=== PATIENT | female | born 1980 | race Caucasian/White ===

== ENCOUNTER 2016-04-20 11:04 | Emergency (ER) | payer OTHER ==
--- NOTE | ~2016-04-20 | CR63 ---
[facility] A Service of [facility] & [facility] RADIOLOGY TEXT RESULTS PATIENT: DAKOTA HUNG LOCATION: SED : 81 UNIT #: [id number] AGE: [address]: Sonam Vo APRN SEX: F ORDER DR: [id number] [place] [id number] E MR#: [id number] Acc #: [id number] NAME: DAKOTA HUNG : 1980 SEX: F STUDY DATE/TIME: 04/20/2016 11:06 UNIT: SED ROOM: STUDY DESCRIPTION: CR Chest 2 View Attending Physician: Sonam Vo A.P.R.N. Ordering Physician: Sonam Vo A.P.R.N. Primary Care Physician: Leticia Figueroa A.P.R.N. MEDICAL IMAGING REPORT This report is preliminary unless electronic signature is present. EXAM Chest x-ray 04/20/2016. HISTORY 35-year-old female in the ED complaining of 2-day history of cough and sore throat. TECHNIQUE PA and lateral upright chest series. FINDINGS The heart size and pulmonary vascularity are normal. The lungs are expanded and clear. No visible pulmonary infiltrate or pleural effusion. No change since 07/20/2015. IMPRESSION Negative chest. No change since 07/20/2015. Dictated by... Cristóbal Corea M.D. THIS IS AN ELECTRONICALLY VERIFIED REPORT Cristóbal Corea M.D. at 04/20/2016 4:12 PM ONEL/liliana TD: 04/20/2016 14:00 JOB #: [id number] MEDICAL IMAGING REPORT
--- NOTE | ~2016-04-20 | CR151 ---
[facility] A Service of [facility] & [facility] RADIOLOGY TEXT RESULTS PATIENT: DAKOTA HUNG LOCATION: SED : 81 UNIT #: [id number] AGE: [address]: Sonam Vo APRN SEX: F ORDER DR: [id number] [place] [id number] E MR#: [id number] Acc #: [id number] NAME: DAKOTA HUNG : 1980 SEX: F STUDY DATE/TIME: 04/20/2016 11:06 UNIT: SED ROOM: STUDY DESCRIPTION: CR Hip Min 2 Views Rt Attending Physician: Sonam Vo A.P.R.N. Ordering Physician: Sonam Vo A.P.R.N. Primary Care Physician: Leticia Figueroa A.P.R.N. MEDICAL IMAGING REPORT This report is preliminary unless electronic signature is present. EXAM Pelvis and right hip, 3 total views, 04/20/2016, 11:06 a.m. HISTORY History sheet states right hip pain for 1 day. Right hip gave out and patient fell. FINDINGS There is no fracture, dislocation, or osseous lesion identified. Transitional lumbosacral segment on the left with a pseudojoint is likely incidental. No soft tissue abnormality. IMPRESSION No acute abnormalities. Dictated by... Mattie Su M.D. THIS IS AN ELECTRONICALLY VERIFIED REPORT Mattie Su M.D. at 04/21/2016 9:40 AM DOMINGO/jenise TD: 04/20/2016 13:59 JOB #: [id number] MEDICAL IMAGING REPORT
[~2016-04-20 11:04] MED LIST: ALBUTEROL17 GM INH; AMOXICILLIN PO; AMOXICILLIN500 M1 PO; ASCORBIC ACID500 M2 PO; BACTRIM DS TABL1 TA1 PO; BENADRYL25 M3; BENZONATATE PO; CELEXA20 MG; DAKIN'S MODIF1000 ML EXT; DESYREL50 MG; DICLOFENAC PO; E-MYCIN250 MG PO; FLONASE 0.05% N16 G1; HCTZ; IBUPROFEN; IBUPROFEN PO; IBUPROFEN800 MG PO; K-DUR20 ME1 PO; KEFLEX500 MG PO; LORTAB PO; NO MEDICATIONS; ONE DAILY1 TA3 PO; PHENERGAN VC W120 M1 PO; PREDNISONE10 MG PO; SANTYL15 G1 TP; SINGULAIR; TYLOX 5/500 CAP1 CAP PO; VICODIN 5/1 TAB 5/50 PO; VOLTAREN75 MG PO; ZINC SULFATE220 M1 PO; ZITHROMAX PO; ZITHROMAX1 G/PKT PO; ZYRTEC10 M1; ZYVOX600 MG PO
[2016-04-20 11:57] LABS: INFLUENZA A NEG (NEG); INFLUENZA B NEG (NEG)
[2016-04-30] MEDS ORDERED: HCTZ PO (22:23)
== END 2016-04-20 12:36 | disposition home or self-care (01) ==
LOC: SED 11:04
PROVIDERS: Nurse Practitioner
DX: J20.9 Acute bronchitis, unspecified (principal); M25.551 Pain in right hip; F41.9 Anxiety disorder, unspecified; F17.210 Nicotine dependence, cigarettes, uncomplicated
CPT/HCPCS: 71020; 73502; 87651; 87804; 96372; 99284; J1885

== ENCOUNTER 2016-04-30 23:17 | Emergency (ER) | payer OTHER ==
[~2016-04-30 23:17] MED LIST changes: +HCTZ PO
[2016-05-01] MEDS ORDERED: BACTRIM 400-801 TA1 PO (00:44)
[2016-05-01] MEDS ORDERED: KEFLEX500 M1 PO (00:45)
[2016-05-01] MEDS ORDERED: IBUPROFEN800 MG PO (00:45)
[2016-05-01] MEDS ORDERED: ZOFRAN ODT4 MG PO (00:45)
== END 2016-05-01 00:45 | disposition home or self-care (01) ==
LOC: SED 23:17
DX: L02.211 Cutaneous abscess of abdominal wall (principal); Z23 Encounter for immunization; F31.9 Bipolar disorder, unspecified; F41.9 Anxiety disorder, unspecified; R60.0 Localized edema; F17.210 Nicotine dependence, cigarettes, uncomplicated; F43.10 Post-traumatic stress disorder, unspecified; Z88.5 Allergy status to narcotic agent; Z88.8 Allergy status to other drugs, medicaments and biological substances
CPT/HCPCS: 10060; 90471; 90715; 99283

== ENCOUNTER → 2016-06-20 | Outpatient (CLI) | payer OTHER ==
[~2016-06-20] MED LIST changes: +BACTRIM 400-801 TA1 PO; +HYDROMORPH; +KEFLEX500 M1 PO; +NORCO 7.5-3251 EACH PO; +PHENERGAN25 M1 PO; +SINGULAIR PO; +ZOFRAN ODT4 MG PO
--- NOTE | ~2016-06-20 | US5 ---
[facility] A Service of [facility] RADIOLOGY TEXT RESULTS PATIENT: DAKOTA HUNG LOCATION: RUST : 81 UNIT #: [id number] AGE: [address]: Leticia Figueroa SEX: F ORDER DR: [id number] [address] [address] [id number] O MR#: [id number] Acc #: [id number] NAME: DAKOTA HUNG : 1980 SEX: F STUDY DATE/TIME: 06/20/2016 9:41 UNIT: RUST ROOM: STUDY DESCRIPTION: US Abdominal Complete Attending Physician: Leticia Figueroa A.P.R.N. Referring Physician: Leticia Figueroa A.P.R.N. Ordering Physician: Leticia Figueroa A.P.R.N. Primary Care Physician: Leticia Figueroa A.P.R.N. MEDICAL IMAGING REPORT This report is preliminary unless electronic signature is present. EXAM Abdominal ultrasound complete 06/20/2016 HISTORY Generalized abdominal pain and nausea for 1 week. Pain while eating for 1 month. FINDINGS The liver is homogeneous in echotexture and demonstrates no cystic or solid mass lesions. The intra- and extrahepatic bile ducts are not dilated. The gallbladder contains multiple shadowing gallstones but there is no evidence of gallbladder wall thickening or pericholecystic fluid. The common duct measures 2 mm. The pancreas and the spleen are normal. The spleen measures 10.3 cm in greatest diameter. The visualized portions of the abdominal aorta and inferior vena cava are within normal limits. The kidneys are normal bilaterally. IMPRESSION Cholelithiasis. Dictated by... Duncan Cole M.D. THIS IS AN ELECTRONICALLY VERIFIED REPORT Duncan Cole M.D. at 06/21/2016 9:02 AM PILO/geno TD: 06/20/2016 14:59 JOB #: [id number] MEDICAL IMAGING REPORT [facility] A Service of [facility] RADIOLOGY TEXT RESULTS PATIENT: DAKOTA HUNG LOCATION: RUST : 81 UNIT #: [id number] AGE: [address]: Leticia Figueroa SEX: F ORDER DR: Page 1 of 1
== END | disposition home or self-care (01) ==
LOC: SGUS 09:32
DX: R10.84 Generalized abdominal pain (principal); K80.20 Calculus of gallbladder without cholecystitis without obstruction
CPT/HCPCS: 76700

== ENCOUNTER 2016-07-03 22:58 | Emergency (ER) | payer OTHER ==
[~2016-07-03 22:58] MED LIST changes: -HYDROMORPH; -NORCO 7.5-3251 EACH PO; -PHENERGAN25 M1 PO; -SINGULAIR PO
[2016-07-03] MEDS ORDERED: SINGULAIR PO (23:07)
[2016-07-03 23:34] LABS: INFLUENZA A NEG (NEG); INFLUENZA B NEG (NEG)
== END 2016-07-04 00:26 | disposition home or self-care (01) ==
LOC: SED 22:58
PROVIDERS: Emergency Medicine
DX: J06.9 Acute upper respiratory infection, unspecified (principal); F17.200 Nicotine dependence, unspecified, uncomplicated; Z88.5 Allergy status to narcotic agent; Z79.899 Other long term (current) drug therapy
CPT/HCPCS: 87651; 87804; 99282

== ENCOUNTER 2016-07-12 10:36 | Inpatient (IN) | payer OTHER ==
--- NOTE | ~2016-07-12 | CT57 ---
[facility] A Service [facility] RADIOLOGY TEXT RESULTS PATIENT: DAKOTA HUNG LOCATION: [facility] 465-01 : [birth year] UNIT #: [id number] AGE: [address]: Daniele Stevens MD SEX: F ORDER DR: [id number] [facility] [address] [facility]. [place], [place] [address] [id number] I MR#: [id number] Acc #: [id number] NAME: DAKOTA HUNG. : 1980 SEX: F STUDY DATE/TIME: 07/16/2016 13:20 UNIT: [facility] ROOM: [facility] STUDY DESCRIPTION: CT Chest Wo Cont Attending Physician: Daniele Stevens Jr., M.D. Ordering Physician: Mino Macias M.D. Primary Care Physician: Leticia Figueroa A.P.R.N. MEDICAL IMAGING REPORT This report is preliminary unless electronic signature is present EXAM CT scan of the chest without contrast. INDICATIONS Left-sided chest pain. Cough for 2 days. Patient had a cholecystectomy on 07/12/16. Chest x-ray shows atelectasis or pneumonia. TECHNIQUE Axial 5 mm images were obtained through the chest without IV contrast. This CT exam was performed with one or more of the following radiation dose reduction techniques: automatic exposure control, adjustment of mA and/or kV according to patient size, and iterative reconstruction. FINDINGS The visualized portion of the upper abdomen shows recent post-cholecystectomy changes without evidence of complication. There is minimal atelectasis in the right lower lobe superior segment and mild right base atelectasis in the posterior medial segment. There is slightly larger area of atelectasis in the left lower lobe involving the posterior and lateral basilar segments. The thyroid gland is normal. IMPRESSION 1. Mild atelectasis, left base, with minimal atelectasis right base, in right lower lobe superior segment. 2. Postoperative changes of recent cholecystectomy. Dictated by... Caden Sauer M.D. [facility] A Service [facility] RADIOLOGY TEXT RESULTS PATIENT: DAKOTA HUNG LOCATION: [place] [address] : [birth year] UNIT #: [id number] AGE: [address]: Daniele Stevens MD SEX: F ORDER DR: THIS IS AN ELECTRONICALLY VERIFIED REPORT Caden Sauer M.D. at 07/17/2016 7:03 AM RADHA/andreia TD: 07/16/2016 22:12 JOB #: [id number] MEDICAL IMAGING REPORT Page 1 of 1 COPY
--- NOTE | ~2016-07-12 | OR ---
Unit #: [id number] #: [id number] Patient: DAKOTA HUNG [id number] [address] [place], [place] [address] [id number] I MR#: [id number] NAME: DAKOTA HUNG ROOM: [facility] Date of Procedure: 07/12/2016 Admission Date: 07/12/2016 Surgeon: Daniele Stevens Jr., M.D. : 1980 Attending Physician: Daniele Stevens Jr., M.D. Primary Care Physician: Leticia Figueroa A.P.R.N. OPERATIVE REPORT INDICATION FOR PROCEDURE The patient is a 36-year-old white female, who recently was referred to the office complaining of intermittent mid epigastric and right upper quadrant abdominal pain with gallstones that were found on workup. It was felt she needed laparoscopic cholecystectomy. She has had biliary colic and is brought in this time for this procedure. She understands the procedure including the risks, including that of common duct injury, biliary leak, and bleeding, and intra-abdominal organ injury, and consents. PREOPERATIVE DIAGNOSES Chronic cholecystitis and cholelithiasis. POSTOPERATIVE DIAGNOSIS Chronic cholecystitis and cholelithiasis noting several aberrant ducts around the gallbladder with a normal-appearing common duct on cholangiogram. ANESTHESIA General with endotracheal intubation. PROCEDURE PERFORMED Laparoscopic cholecystectomy then followed by exploratory laparotomy of the right upper quadrant with intraoperative cholangiograms and fluoroscopy. DESCRIPTION OF PROCEDURE The patient was positioned in supine position. After being anesthetized and intubated, she was prepped and draped in routine fashion for laparoscopic cholecystectomy. A small supraumbilical incision was made approximately 1 cm in length. This was carried down to the fascia. The fascia was lifted between 2 Jessica clamps and Veress needle introduced into the abdomen. The abdomen was then inflated with CO2 gas. A 5-mm port was introduced into the abdomen followed by the camera. There was no evidence of any injury related to introduction of the port or the Veress needle. Brief intra-abdominal exploration was carried out. The patient was noted to have some adhesions in the lower abdomen and a chronic inflamed appearing gallbladder. Two 5-mm ports were placed laterally and an 11-mm port just to the right of the upper midline. The gallbladder was lifted and dissection was carried out on the triangle of Calot. The cystic duct was very small, isolated, hemoclipped x4 at least 1 cm from its junction with the common duct or at least that is what it appeared to be and then divided. Cystic artery was divided and hemoclipped and was a Unit #: [id number] #: [id number] Patient: DAKOTA HUNG A branch right off the right hepatic. There were several small aberrant appearing ductal structures at the base of the gallbladder, which were also hemoclipped, but did not appear to be the common duct. The gallbladder was removed from its bed with the hook cautery using a current of 20 and after it was released, it was placed in EndoCatch bag and brought out through the larger port site. It was full of large stones. It was sent to pathology to make sure that there was no evidence of any common duct fragment into the cystic duct and this was felt to not be the case, but it was unsure. In view of this fact, I discussed this with her family member and felt she should have exploratory laparotomy of the right upper quadrant with cholangiograms and possible repair of the common duct if any injury found. A transverse incision was made extending towards the midline over to the anterior axillary line in the subcostal area 2 fingerbreadths below the costal area. This was carried down through subcutaneous tissue through the anterior rectus sheath with portion of the rectus sheath being divided and the posterior rectus sheath was then opened and divided in with Bovie cautery. Intra-abdominal exploration was carried out. Sponge that had been packed in was removed and sponge count was correct x3. The right upper quadrant was explored. There was evidence of a normal-appearing common duct just medial to the area of dissection with clips on the cystic duct with no leaks. There were also additional small ductal structures as noted above, which had hemoclips on them and did not appear to be any important ducts related to the common duct or the hepatic ducts. A 21-gauge scalp vein needle was placed in the common duct under fluoroscopy. The common duct was x-rayed with dye and appeared totally normal with no evidence of any stones, obstruction, or damage to the hepatic ducts or to the common duct. The scalp vein needle was then removed and the puncture hole was then closed with an interrupted 5-0 Prolene stitch. The right upper quadrant was copiously irrigated with saline solution. A 10 mm Rashi-Tavarez drain was placed in the subhepatic space sutured to the skin with 2-0 silk suture and the posterior rectus sheath and internal oblique muscle layer were closed with continuous #1 Vicryl sutures. Anterior rectus sheath and external oblique layers were closed with interrupted #1 Vicryl suture. Subcutaneous tissue was irrigated and after hemostasis achieved with Bovie cautery and sponge count was correct x3, the skin edges on all the wounds were approximated with stainless-steel skin clips and skin stapling device. Sterile dressings were applied externally. Estimated blood loss less than 150 mL. The patient received less than 3000 mL crystalloid solution during the procedure. Sponges and instruments counts were correct x3. No drains used. No complications. The patient was taken to the recovery room with stable vital signs in satisfactory condition. Dictated by... Daniele Stevens Jr., MLavelle STATON/kae TD: 07/13/2016 00:57 JOB #: [id number] Unit #: [id number] #: [id number] Patient: DAKOTA HUNG OPERATIVE REPORT Page 1 of 1 X Daniele Stevens MD X PROCEDURE OPERATIVE NOTE
--- NOTE | ~2016-07-12 | DS ---
Unit #: [id number] #: [id number] Patient: DAKOTA HUNG [id number] [address] [place], [place] [address] [id number] I MR#: [id number] NAME: DAKOTA HUNG. ROOM: 465 Age: 36 Sex: F Admission Date: 07/12/2016 : 1980 Discharge Date: 07/17/2016 Attending Physician: Daniele Stevens Jr., M.D. Primary Care Physician: Leticia Figueroa A.P.R.N. DISCHARGE SUMMARY ADMITTING DIAGNOSIS Chronic cholecystitis. DISCHARGE DIAGNOSIS Chronic cholecystitis. SECONDARY DIAGNOSES 1. Left lower lobe atelectasis/infiltrate. 2. History of tobacco abuse. CONSULTATIONS 1. Hospitalist. 2. Dr. Jax Root. PROCEDURE PERFORMED On 07/12/2016, she underwent attempted laparoscopic with conversion to open cholecystectomy due to some aberrant cystic duct anatomy. BRIEF HOSPITAL COURSE This is a 36-year-old lady who has a diagnosis of chronic cholecystitis with gallstones. She came in for laparoscopic cholecystectomy. However, at the time of surgery, she had what looked like some aberrant anatomy that required conversion to an open procedure for confirmation. She, postoperatively, had a bump in her liver function tests. However, follow up showed that they were declining with a normal bilirubin. Her alkaline phos. was still slightly elevated. She also had some shortness of air postoperatively so pulmonary was asked to see the patient and she also had hospitalist follow her for other medical problems. Prior to discharge, she was tolerating a regular diet. Her MT drain was discontinued. She was only on oral pain medication. DISPOSITION Discharge to home. She is to follow up with Dr. Stevens in the office on Monday to have her tracey removed. She was given a script for [place] and Phenergan and apparently pulmonary is going to place her on an antibiotic prior to discharge. Dictated by... Michael Reaves III, M.D. Unit #: [id number] #: [id number] Patient: DAKOTA HUNG LATRELL/eva TD: 07/19/2016 07:59 JOB #: [id number] DISCHARGE SUMMARY Page 1 of 1 X Michael Reaves III, MD X DISCHARGE SUMMARY
--- NOTE | ~2016-07-12 | CR63 ---
[facility] A Service of [facility] RADIOLOGY TEXT RESULTS PATIENT: ADKOTA HUNG LOCATION: [place] [address] : [birth year] UNIT #: [id number] AGE: [address]: Daniele Stevens MD SEX: F ORDER DR: [id number] [facility] [address] [facility]. [place], [place] [address] [id number] I MR#: [id number] Acc #: [id number] NAME: DAKOTA HUNG. : 1980 SEX: F STUDY DATE/TIME: 07/14/2016 12:41 UNIT: [facility] ROOM: 450 STUDY DESCRIPTION: CR Chest 2 View Attending Physician: Daniele Stevens Jr., M.D. Ordering Physician: Daniele Stevens Jr., M.D. Primary Care Physician: Leticia Figueroa A.P.R.N. MEDICAL IMAGING REPORT This report is preliminary unless electronic signature is present EXAM Two views chest, 07/14/16. HISTORY Complains of chest pain, left side chest pain, cough. Began yesterday. Smoker 25 years. REPORT AP radiograph of the chest is presented. COMPARISON 07/13/16, 2012 hours. FINDINGS Stable cardiomediastinal silhouette. The lung volumes remain low. Patchy and linear densities at the right lung base probably atelectatic in nature. Denser airspace disease at the left lung base probably represents combination of atelectasis and pneumonia. Follow up to complete radiographic resolution recommended. The upper lung zones are clear. There is no definite pleural effusion. No pneumothorax. There is evidence of prior cholecystectomy. Dictated by... Valentin Pack M.D. THIS IS AN ELECTRONICALLY VERIFIED REPORT Valentin Pack M.D. at 07/16/2016 10:28 PM CODEY/andreia TD: 07/14/2016 17:23 JOB #: [id number] [facility] A Service of [facility] RADIOLOGY TEXT RESULTS PATIENT: DAKOTA HUNG [id number] : [birth year] UNIT #: [id number] AGE: [address]: Daniele Stevens MD SEX: F ORDER DR: MEDICAL IMAGING REPORT Page 1 of 1 COPY
--- NOTE | ~2016-07-12 | EKG ---
PATIENT: DAKOTA HUNG UNIT #: [id number] Ventricular Rate: 57 BPM Atrial Rate: 57 BPM P-R Interval: 140 ms QRS Duration: 80 ms Q-T Interval: 452 ms QTC Calculation(Bezet): 439 ms P [place]: 36 degrees Calculated R [place]: 46 degrees Calculated T [place]: 30 degrees Diagnosis Line: Sinus bradycardia with Premature atrial complexes Diagnosis Line: Otherwise normal ECG Diagnosis Line: When compared with ECG of 12-JUL-2016 10:51, Diagnosis Line: Premature atrial complexes are now Present Diagnosis Line: QT has shortened Diagnosis Line: Confirmed by CLAUDIO DELGADO MD ([id number]) on Diagnosis Line: 07/14/2016 7:09:45 PM INTERPRETING MD: SANDY MCINTYRE
--- NOTE | ~2016-07-12 | CR73 ---
[facility] A Service of [facility] & [facility] RADIOLOGY TEXT RESULTS PATIENT: DAKOTA HUNG LOCATION: [facility] 450-01 : [birth year] UNIT #: [id number] AGE: [address]: Daniele Stevens MD SEX: F ORDER DR: [id number] [facility] [address] [facility]. [place], [place] [address] [id number] I MR#: [id number] Acc #: [id number] NAME: DAKOTA HUNG : 1980 SEX: F STUDY DATE/TIME: 07/12/2016 15:22 UNIT: [facility] ROOM: [facility] STUDY DESCRIPTION: CR Cholangiogram Operative Attending Physician: Daniele Stevens Jr., M.D. Ordering Physician: Daniele Stevens Jr., M.D. Primary Care Physician: Leticia Figueroa A.P.R.N. MEDICAL IMAGING REPORT This report is preliminary unless electronic signature is present EXAM Operative cholangiogram HISTORY Cholecystectomy. TECHNIQUE A single view was obtained over the right upper quadrant during injection of the cystic duct with contrast. There is filling of the common bile duct with spill into the duodenum noted. No filling defects are seen. Leakage of a small amount of contrast is seen at the injection. IMPRESSION Negative operative cholangiogram. One spot film was obtained. Total fluoroscopy time documented at 28 seconds. Dictated by... Willy Zelaya M.D. THIS IS AN ELECTRONICALLY VERIFIED REPORT Willy Zelaya M.D. at 07/14/2016 4:33 PM STEPHANIA/mathew TD: 07/12/2016 23:41 JOB #: [id number] MEDICAL IMAGING REPORT Page 1 of 1 COPY
--- NOTE | ~2016-07-12 | CO ---
Unit #: [id number] #: [id number] Patient: DAKOTA HUNG [id number] [address] [place], [place] [address] [id number] I MR#: [id number] NAME: DAKOTA HUNG. ROOM: 450 Age: 36 Sex: F Admission Date: 07/12/2016 : 1980 Attending Physician: Daniele Stevens Jr., M.D. Primary Care Physician: Leticia Figueroa A.P.R.N. CONSULTATION REPORT REASON FOR CONSULTATION Chest pain. HISTORY OF PRESENT ILLNESS The patient is a 36-year-old female with a past medical history of anxiety, posttraumatic stress disorder, bipolar disorder, and had a laparoscopic cholecystectomy done followed by the exploratory laparotomy of the right upper quadrant with intraoperative cholangiogram and fluoroscopy on 07/12/2016. The patient was doing fine and started complaining of generalized upper chest pain and back pain. The patient is also hyperventilating. The patient has the pain medication with morphine and the patient stated pain medication helps the pain at the site of the surgery, but the pain is different from the surgical site. The patient currently described the pain as it hurts and the patient has crying spells. The hospitalist consult has been placed for the chest pain. PAST MEDICAL HISTORY History of anxiety, posttraumatic stress disorder, bipolar disorder. PAST SURGICAL HISTORY . ALLERGIES Flexeril. SOCIAL HISTORY Smokes one pack a day for a year. Denies alcohol or any illicit drug abuse. HOME MEDICATIONS She takes hydrochlorothiazide, ibuprofen, Singulair. PHYSICAL EXAMINATION GENERAL: The patient is sitting up on side of the bed and not in acute distress. VITAL SIGNS: Temperature 97.8, blood pressure 178/97, saturating 98%, respiratory rate 26, and heart rate is 58. HEENT: Head, atraumatic, normocephalic. Pupils are equal, round, and reactive to light and accommodation. Extraocular movements are intact. NECK: Supple. LUNGS: Decreased air entry at the bedside. HEART: Regular rate and rhythm. ABDOMEN: Status post laparoscopic cholecystectomy with exploratory Unit #: [id number] #: [id number] Patient: DAKOTA HUNG laparotomy. EXTREMITIES: No cyanosis. No clubbing. DIAGNOSTIC STUDIES LABORATORY RESULTS: Glucose 202, BUN 9, creatinine 0.7, sodium 135, potassium 4, chloride 105, bicarb 24, calcium 8.7, total protein 7.2, albumin 3.5, AST 178, ALT 147, alkaline phosphatase 95. INR is 1.1. WBC 16.3, hemoglobin 10.9, hematocrit 34.3, platelets of 52, neutrophils 89.3. CARDIOVASCULAR STUDIES: EKG that was done on shows normal sinus rhythm with left atrial enlargement, prolonged QT. ASSESSMENT 1. Chest pain. 2. Hypoventilation. 3. Anxiety. 4. Status post laparoscopic cholecystectomy. PLAN To continue with postop care to rule out ischemia with troponins and EKG and the patient will get GI cocktail and the patient might need Xanax for anxiety. Further recommendations will follow as more lab results are available. Dictated by... Rolf Arroyo/kae TD: 07/15/2016 03:03 JOB #: [id number] CONSULTATION REPORT Page 1 of 1 X X CONSULTATION REPORT
--- NOTE | ~2016-07-12 | EKG ---
PATIENT: DAKOTA HUNG UNIT #: [id number] Ventricular Rate: 84 BPM Atrial Rate: 84 BPM P-R Interval: 160 ms QRS Duration: 82 ms Q-T Interval: 426 ms QTC Calculation(Bezet): 503 ms P [place]: 48 degrees Calculated R [place]: 38 degrees Calculated T [place]: 28 degrees Diagnosis Line: Normal sinus rhythm Diagnosis Line: Possible Left atrial enlargement Diagnosis Line: Prolonged QT Diagnosis Line: Abnormal ECG Diagnosis Line: When compared with ECG of 14-OCT-2012 15:17, Diagnosis Line: No significant change was found Diagnosis Line: Confirmed by STEPHON ORDONEZ MD ([id number]) on Diagnosis Line: 07/12/2016 3:50:44 PM INTERPRETING MD: MERY MCINTYRE
--- NOTE | ~2016-07-12 | CO ---
Unit #: [id number] #: [id number] Patient: DAKOTA BAUTISTA [id number] [address] [place], [place] [address] [id number] I MR#: [id number] NAME: DAKOTA BAUTISTA. ROOM: 450 Age: 36 Sex: F Admission Date: 07/12/2016 : 1980 Attending Physician: Daniele Stevens Jr., M.D. Primary Care Physician: Leticia Figueroa A.P.R.N. CONSULTATION REPORT HISTORY OF PRESENT ILLNESS Ms. Bautista is a 36-year-old white female who was admitted for laparoscopic cholecystectomy, followed by exploratory laparotomy of the right upper quadrant with intraoperative cholangiogram and fluoroscopy. She was found to have chronic cholecystitis with (1) with several aberrant ducts around the gallbladder with normal appearing common bile duct on cholangiogram. She has developed some atelectasis in the base of the lung and we were asked to see her for possible pneumonia. She has had a history of smoking about a half pack of cigarettes a day. She is on no inhalers. PAST MEDICAL HISTORY 1. Anxiety. 2. Posttraumatic stress syndrome. 3. Bipolar disorder. PAST SURGICAL HISTORY . SOCIAL HISTORY Smokes a half pack of cigarettes daily. No alcohol or illicit drugs. ALLERGIES Flexeril. HOME MEDICATIONS 1. Hydrochlorothiazide. 2. Ibuprofen. 3. Singulair. REVIEW OF SYSTEMS Otherwise negative. She had a bit of an upper respiratory infection prior to surgery, but no fevers or chills. Sputum is white. PHYSICAL EXAMINATION GENERAL: White female in no distress. VITALS: Blood pressure 117/67, pulse 98, respiratory rate 18, afebrile. HEENT: Normocephalic, atraumatic. Pupils equal, round and reactive. Sclerae nonicteric. Nasal passages patent. Posterior pharynx clear. Mucous membranes moist. NECK: Supple. Trachea midline. LUNGS: Some crackles at the bases. Otherwise fairly clear. No wheezing. HEART: Heart sounds distant. Regular rate and rhythm. Could not appreciate murmur, rub or gallop. Unit #: [id number] #: [id number] Patient: DAKOTA BAUTISTA ABDOMEN: Mildly tender. Bowel sounds present. Postoperative cholecystectomy. Drain place. EXTREMITIES: Without clubbing, cyanosis or edema. NEUROLOGIC: Awake and oriented times three. Cranial nerves grossly intact. Muscle strength symmetric bilaterally. Affect calm. SKIN: Warm and dry. DIAGNOSTIC STUDIES IMAGING: Chest x-ray as noted. LABORATORY: BMP reviewed and unremarkable. Liver function test elevated. White blood cell count 16,600, hematocrit 31, platelet count normal. ASSESSMENT 1. Postoperative lap cholecystectomy. 2. Left lower lobe atelectasis or infiltrate. 3. Tobacco abuse. 4. Recent upper respiratory infection. 5. Elevated LFTs. 6. Anemia. PLAN Pulmonary hygiene with incentive spirometer, flutter valve, hypertonic saline with albuterol, follow-up chest x-ray in a couple of days, smoking cessation. Will provide a nicotine patch. DVT prophylaxis per surgery and internal medicine. Further recommendations pending this. Dictated by... Kenny Root M.D. KAI/olga TD: 07/16/2016 10:47 JOB #: [id number] CC: Kenny Root M.D. CONSULTATION REPORT Page 1 of 1 X Kenny Root MD X CONSULTATION REPORT
--- NOTE | ~2016-07-12 | CR72 ---
[facility] A Service of [facility] & [facility] RADIOLOGY TEXT RESULTS PATIENT: DAKOTA HUNG LOCATION: [facility] 450-01 : [birth year] UNIT #: [id number] AGE: [address]: Daniele Stevens MD SEX: F ORDER DR: [id number] [facility] [address] [place], [place] [address] [id number] I MR#: [id number] Acc #: [id number] NAME: DAKOTA HUNG. : 1980 SEX: F STUDY DATE/TIME: 07/13/2016 20:12 UNIT: [facility] ROOM: [facility] STUDY DESCRIPTION: CR Chest Single View Portable Attending Physician: Dainele Stevens Jr., M.D. Ordering Physician: Physician Non-Staff Primary Care Physician: Leticia Figueroa A.P.R.N. MEDICAL IMAGING REPORT This report is preliminary unless electronic signature is present EXAM AP portable chest, 07/13/2016 HISTORY Chest pain, gallstones, shortness of breath. Symptoms present for a few days. Postop cholecystectomy. COMPARISON PA and lateral chest radiograph, 04/20/2016 FINDINGS Low volume inspiration. Band-like atelectatic type changes are present within the bilateral lower lobes, left greater than right. No pleural effusion or pneumothorax is seen. Heart size is within normal limits. IMPRESSION Band-like airspace opacities are present within bilateral lower lobes, left greater right. Atelectasis is favored over pneumonia. Dictated by... Laurie Solano M.D. THIS IS AN ELECTRONICALLY VERIFIED REPORT Laurie Solano M.D. at 07/14/2016 10:06 AM Sofya TD: 07/14/2016 08:28 JOB #: [id number] MEDICAL IMAGING REPORT Page 1 of 1 COPY
[~2016-07-12 10:36] MED LIST changes: +SINGULAIR PO
[2016-07-12 11:43] LABS: ALBUMIN SERUM 3.7 g/dL (3.5-5.0); BILIRUBIN,TOTAL 0.7 mg/dL (0.2-2.0); BUN/CREATININE RATIO 13.33; CALCIUM SERUM 8.6 mg/dL (8.4-10.2); CREATININE SERUM 0.6 mg/dL (0.6-1.4); GLOM FILT RATE Estimated 118.1 mL/min (>60); POTASSIUM 3.4 mmol/L (3.5-5.1); PROTEIN TOTAL SERUM 7.5 g/dL (6.0-8.3)
[2016-07-13 02:43] LABS: BASOPHIL% 0.1 % (0-2.5); HEMATOCRIT 34.3 % (35.0-45.0); HEMOGLOBIN 10.9 gm/dL (12.0-16.0); LYMPHOCYTE# 1.1 X10e3 (1.0-3.5); LYMPHOCYTE% 6.8 % (17.0-45.0); MEAN CELL VOLUME 89.1 FL (83-96); MEAN CORPUSCULAR HEMOGLOBIN 28.4 PG (28-34); MEAN CORPUSCULAR HGB CONC 31.9 g/dL (30-36); MEAN PLATELET VOLUME 10.6 FL (6.5-11.5); MONOCYTE# 0.6 X10e3 (0-1.0); MONOCYTE% 3.8 % (3.0-12.0); NEUTROPHIL# 14.5 X10e3 (1.5-7.1); NEUTROPHIL% 89.3 % (40-75); PLATELET COUNT 252 X10e3 (140-420); RED BLOOD COUNT 3.84 X10e (3.90-5.30); RED CELL DISTRIBUTION WIDTH 14.9 % (11.0-15.5); WHITE BLOOD COUNT 16.3 X10e3 (4.0-10.5)
[2016-07-13 02:44] LABS: DIFF IND NO
[2016-07-13 03:16] LABS: ALBUMIN SERUM 3.5 g/dL (3.5-5.0); BILIRUBIN,TOTAL 0.8 mg/dL (0.2-2.0); BUN/CREATININE RATIO 12.85; CALCIUM SERUM 8.7 mg/dL (8.4-10.2); CREATININE SERUM 0.7 mg/dL (0.6-1.4); GLOM FILT RATE Estimated 112.3 mL/min (>60); PROTEIN TOTAL SERUM 7.2 g/dL (6.0-8.3)
[2016-07-13 21:35] LABS: %MB 0.9 % (0.0-4.0); MB 3.7 ng/ml
[2016-07-14 03:33] LABS: BASOPHIL# 0.1 X10e3 (0-0.3); BASOPHIL% 0.5 % (0-2.5); EOSINOPHIL% 0.1 % (0.0-7.0); HEMOGLOBIN 10.9 gm/dL (12.0-16.0); LYMPHOCYTE# 2.7 X10e3 (1.0-3.5); LYMPHOCYTE% 13.3 % (17.0-45.0); MEAN CELL VOLUME 89.1 FL (83-96); MEAN CORPUSCULAR HEMOGLOBIN 28.6 PG (28-34); MEAN CORPUSCULAR HGB CONC 32.1 g/dL (30-36); MEAN PLATELET VOLUME 10.4 FL (6.5-11.5); MONOCYTE# 1.7 X10e3 (0-1.0); MONOCYTE% 8.3 % (3.0-12.0); NEUTROPHIL# 15.8 X10e3 (1.5-7.1); NEUTROPHIL% 77.8 % (40-75); PLATELET COUNT 279 X10e3 (140-420); RED BLOOD COUNT 3.81 X10e (3.90-5.30); RED CELL DISTRIBUTION WIDTH 14.8 % (11.0-15.5); WHITE BLOOD COUNT 20.2 X10e3 (4.0-10.5)
[2016-07-14 03:36] LABS: DIFF IND YES
[2016-07-14 04:11] LABS: ALBUMIN SERUM 3.9 g/dL (3.5-5.0); BILIRUBIN,TOTAL 1.3 mg/dL (0.2-2.0); BUN/CREATININE RATIO 8.57; CALCIUM SERUM 9.2 mg/dL (8.4-10.2); CREATININE SERUM 0.7 mg/dL (0.6-1.4); GLOM FILT RATE Estimated 112.3 mL/min (>60); POTASSIUM 3.2 mmol/L (3.5-5.1); PROTEIN TOTAL SERUM 7.5 g/dL (6.0-8.3)
[2016-07-14 04:25] LABS: PLATELET ESTIMATE NORMAL (NORMAL)
[2016-07-14 04:26] LABS: ANISOCYTOSIS SL; POIKILOCYTOSIS SL
[2016-07-15 03:53] LABS: BASOPHIL# 0.2 X10e3 (0-0.3); EOSINOPHIL% 0.3 % (0.0-7.0); HEMOGLOBIN 10.1 gm/dL (12.0-16.0); LYMPHOCYTE# 2.9 X10e3 (1.0-3.5); LYMPHOCYTE% 17.3 % (17.0-45.0); MEAN CELL VOLUME 88.4 FL (83-96); MEAN CORPUSCULAR HEMOGLOBIN 28.8 PG (28-34); MEAN CORPUSCULAR HGB CONC 32.6 g/dL (30-36); MEAN PLATELET VOLUME 11.2 FL (6.5-11.5); MONOCYTE# 2.4 X10e3 (0-1.0); MONOCYTE% 14.5 % (3.0-12.0); NEUTROPHIL# 11.1 X10e3 (1.5-7.1); NEUTROPHIL% 66.9 % (40-75); PLATELET COUNT 198 X10e3 (140-420); RED BLOOD COUNT 3.51 X10e (3.90-5.30); RED CELL DISTRIBUTION WIDTH 14.5 % (11.0-15.5); WHITE BLOOD COUNT 16.6 X10e3 (4.0-10.5)
[2016-07-15 03:54] LABS: DIFF IND NO
[2016-07-15 04:18] LABS: ALBUMIN SERUM 3.2 g/dL (3.5-5.0); BILIRUBIN,TOTAL 1.6 mg/dL (0.2-2.0); CALCIUM SERUM 8.4 mg/dL (8.4-10.2); CREATININE SERUM 0.6 mg/dL (0.6-1.4); GLOM FILT RATE Estimated 118.1 mL/min (>60); MAGNESIUM 1.7 mg/dL (1.6-3.0); POTASSIUM 3.1 mmol/L (3.5-5.1)
[2016-07-16 03:55] LABS: BASOPHIL# 0.1 X10e3 (0-0.3); BASOPHIL% 0.6 % (0-2.5); EOSINOPHIL# 0.2 X10e3 (0-0.7); EOSINOPHIL% 1.7 % (0.0-7.0); HEMATOCRIT 28.5 % (35.0-45.0); HEMOGLOBIN 9.5 gm/dL (12.0-16.0); LYMPHOCYTE# 2.4 X10e3 (1.0-3.5); LYMPHOCYTE% 17.2 % (17.0-45.0); MEAN CELL VOLUME 87.7 FL (83-96); MEAN CORPUSCULAR HEMOGLOBIN 29.1 PG (28-34); MEAN CORPUSCULAR HGB CONC 33.2 g/dL (30-36); MEAN PLATELET VOLUME 10.3 FL (6.5-11.5); MONOCYTE# 1.1 X10e3 (0-1.0); NEUTROPHIL# 10.1 X10e3 (1.5-7.1); NEUTROPHIL% 72.5 % (40-75); PLATELET COUNT 220 X10e3 (140-420); RED BLOOD COUNT 3.25 X10e (3.90-5.30); RED CELL DISTRIBUTION WIDTH 14.9 % (11.0-15.5); WHITE BLOOD COUNT 13.9 X10e3 (4.0-10.5)
[2016-07-16 03:59] LABS: DIFF IND NO
[2016-07-16 04:19] LABS: ALBUMIN SERUM 3.1 g/dL (3.5-5.0); BILIRUBIN,TOTAL 1.2 mg/dL (0.2-2.0); BUN/CREATININE RATIO 7.5; CALCIUM SERUM 8.6 mg/dL (8.4-10.2); CREATININE SERUM 0.8 mg/dL (0.6-1.4); GLOM FILT RATE Estimated 95.6 mL/min (>60); MAGNESIUM 1.9 mg/dL (1.6-3.0); POTASSIUM 3.2 mmol/L (3.5-5.1); PROTEIN TOTAL SERUM 6.5 g/dL (6.0-8.3)
[2016-07-17 06:46] LABS: HEMOGLOBIN 9.5 gm/dL (12.0-16.0); MEAN CELL VOLUME 88.8 FL (83-96); MEAN CORPUSCULAR HGB CONC 32.7 g/dL (30-36); MEAN PLATELET VOLUME 10.5 FL (6.5-11.5); RED BLOOD COUNT 3.27 X10e (3.90-5.30); WHITE BLOOD COUNT 13.1 X10e3 (4.0-10.5)
[2016-07-17 07:36] LABS: ALBUMIN SERUM 3.2 g/dL (3.5-5.0); BILIRUBIN,TOTAL 1.1 mg/dL (0.2-2.0); BUN/CREATININE RATIO 11.66; CALCIUM SERUM 8.8 mg/dL (8.4-10.2); CREATININE SERUM 0.6 mg/dL (0.6-1.4); GLOM FILT RATE Estimated 118.1 mL/min (>60); MAGNESIUM 1.8 mg/dL (1.6-3.0); POTASSIUM 3.4 mmol/L (3.5-5.1); PROTEIN TOTAL SERUM 7.2 g/dL (6.0-8.3)
[2016-07-17] MEDS ORDERED: PHENERGAN25 M1 PO (14:14)
[2016-07-17] MEDS ORDERED: NORCO 7.5-3251 EACH PO (14:15)
== END 2016-07-17 18:28 | disposition home or self-care (01) | DRG 418 ==
LOC: CSUR 10:36 → CPACUOF 17:00 → C4B 17:00 → CPACUOF 17:07 → C4B 17:07 → CSUR 17:07 → CPACUOF 18:24 → C4B 18:24 → C4C 07-16 15:10
PROVIDERS: Internal Medicine; Surgery
PROC: 0WJG0ZZ Inspection of Peritoneal Cavity, Open Approach (ICD-10-PCS; 2016-07-12)
PROC: BF10YZZ Fluoroscopy of Bile Ducts using Other Contrast (ICD-10-PCS; 2016-07-12)
PROC: 0FT44ZZ Resection of Gallbladder, Percutaneous Endoscopic Approach (ICD-10-PCS; principal; 2016-07-12 13:30)
DX: K80.10 Calculus of gallbladder with chronic cholecystitis without obstruction (principal); J98.11 Atelectasis; Z68.41 Body mass index [BMI] 40.0-44.9, adult; K66.0 Peritoneal adhesions (postprocedural) (postinfection); F41.9 Anxiety disorder, unspecified; F43.10 Post-traumatic stress disorder, unspecified; F31.9 Bipolar disorder, unspecified; F17.210 Nicotine dependence, cigarettes, uncomplicated; D64.9 Anemia, unspecified; R91.8 Other nonspecific abnormal finding of lung field; J30.9 Allergic rhinitis, unspecified; E66.01 Morbid (severe) obesity due to excess calories; R06.4 Hyperventilation; E87.6 Hypokalemia; R74.0 Nonspecific elevation of levels of transaminase and lactic acid dehydrogenase [LDH]
CPT/HCPCS: 71010; 71020; 71250; 74300; 80053; 82550; 82553; 82607; 83735; 84132; 84443; 84484; 84703; 85025; 85027; 88304; 88331; 93005; 94640; 94760; C9113; G0238; J0131; J0330; J0690; J1100; J1170; J1650; J1885; J2250; J2270; J2405; J2550; J2710; J3010; J3475

== ENCOUNTER 2016-07-24 03:23 | Emergency (ER) | payer OTHER ==
--- NOTE | ~2016-07-24 | CR230 ---
[facility] A Service of [facility] & [facility] RADIOLOGY TEXT RESULTS PATIENT: DAKOTA HUNG LOCATION: SED : 82 UNIT #: [id number] AGE: [address]: Valentin Montez MD SEX: F ORDER DR: [id number] [place] [address] [id number] E MR#: [id number] Acc #: [id number] NAME: DAKOTA HUNG : 1980 SEX: F STUDY DATE/TIME: 07/24/2016 3:44 UNIT: SED ROOM: STUDY DESCRIPTION: CR Shoulder Min 2 View Rt Attending Physician: Valentin Montez M.D. Ordering Physician: Valentin Montez M.D. Primary Care Physician: Leticia Figueroa A.P.R.N. MEDICAL IMAGING REPORT This report is preliminary unless electronic signature is present. EXAM Right shoulder HISTORY Pain right shoulder pain for 3 days. FINDINGS AP view with internal and external rotation of the shoulder girdle shows satisfactory relationship of the humeral head and glenoid fossa. The joint space is normal. There is no identifiable fracture or dislocation or bony destructive process about the shoulder girdle anatomy. The acromioclavicular joint is normal. There is no radiopaque foreign body in the region. IMPRESSION Normal shoulder. Dictated by... Caden Sauer M.D. THIS IS AN ELECTRONICALLY VERIFIED REPORT Caden Sauer M.D. at 07/24/2016 1:53 PM RADHA/karen TD: 07/24/2016 12:07 JOB #: [id number] MEDICAL IMAGING REPORT Page 1 of 1
[~2016-07-24 03:23] MED LIST changes: +NORCO 7.5-3251 EACH PO; +PHENERGAN25 M1 PO
[2016-07-24] MEDS ORDERED: HYDROMORPH (03:32)
== END 2016-07-24 04:51 | disposition home or self-care (01) ==
LOC: SED 03:23
DX: S16.1XXA Strain of muscle, fascia and tendon at neck level, initial encounter (principal); M62.838 Other muscle spasm; F17.200 Nicotine dependence, unspecified, uncomplicated; Z88.8 Allergy status to other drugs, medicaments and biological substances; Z79.899 Other long term (current) drug therapy; X58.XXXA Exposure to other specified factors, initial encounter; Y92.89 Other specified places as the place of occurrence of the external cause
CPT/HCPCS: 73030; 99283